=== PATIENT | male | born 1950 | race Caucasian/White ===

== ENCOUNTER 2016-07-26 09:27 | Emergency (ER) ==
[2016-07-26 09:32] VITALS: BP 157/77; BMI 25.7
--- NOTE | 2016-07-26 09:42 | ED.PDOC ---
General ED Provider: Dr. AIDE AZEVEDO JR Chief Complaint: Fever Stated Complaint: patient states he started with a cough 1 week ago. states increasingly getting worse. states cough prod clear to light yellow phlegm. states throat is sore. c/o bodyaches. some nasal congestion but clear.[ End ]2- 3 days 103.1 81 16 94% 157/77 Time Seen by Physician: 09:40 Mode of Arrival: Walk-In Information Source: Patient Exam Limitations: No limitations Primary Care Provider: ANNELISE RODRÍGUEZ Nursing and Triage Documentation Reviewed and Agree: No Review of Systems - Review Of Systems Constitutional: Reports: Fever, Malaise Eyes: Reports: No symptoms Ears, Nose, Mouth, Throat: Reports: No symptoms Respiratory: Reports: Cough Cardiac: Reports: No symptoms GI: Reports: No symptoms : Reports: No symptoms Musculoskeletal: Reports: Muscle pain Skin: Reports: No symptoms Neurological: Reports: No symptoms Endocrine: Reports: No symptoms Hematologic/Lymphatic: Reports: No symptoms All Other Systems: Other Past Medical History - Past Medical History Previously Healthy: No Endocrine: Reports: None Cardiovascular: Reports: CAD, Hypertension, Other (ENLARGED HEART WITH LOW EJECTION FRACTION) Respiratory: Reports: None Hematological: Reports: None Gastrointestinal: Reports: None Genitourinary: Reports: None Neuro/Psych: Reports: None Musculoskeletal: Reports: None Cancer: Reports: None Other Pertinent Past Medical History: CUT OFF TIP OF LEFT 2ND FINGER - Surgical History General Surgical History: Reports: None - Family History Family History: Reports: None - Social History Smoking Status: Never smoker Hx Substance Use: No Alcohol Screening: None Physical Exam - Physical Exam Appearance: Ill-appearing, Thin Ill-appearing: Moderate Pain Distress: Moderate Eyes: JESSICA, EOMI, Conjunctiva clear ENT: Ears normal, Nose normal, Oropharynx normal Neck: Supple Respiratory: Airway patent, Breath sounds diminished, Crackles, Rhonchi Cardiovascular: RRR, Pulses normal, No rub, No murmur GI/: Soft, Nontender, No masses, Bowel sounds normal, No Organomegaly Musculoskeletal: Normal strength, ROM intact, No edema, No calf tenderness Skin: Warm, Dry, Normal color Neurological: Sensation intact, Motor intact, Reflexes intact, Cranial nerves intact, Alert, Oriented Psychiatric: Affect appropriate, Mood appropriate Interpretation - Radiology Interpretation Radiology Interpretation By: Radiologist Radiology Results: No acute changes Exam Interpreted: CXR - EKG Interpretation Time of EKG #1: 09:45 Rate: Normal Rhythm: Sinus Ambler: Left ST Segment: Other (lbbb) EKG Comparison: No significant changes ([id number]) Critical Care Note - Critical Care Note Total Time (mins): 0 Course - Course Hematology/Chemistry: 07/26/16 10:00 07/26/16 10:00 Orders, Labs, Meds: Lab Review 07/26/16 07/26/16 10:00 10:12 WBC 6.79 RBC 4.23 L Hgb 13.7 L Hct 39.2 L MCV 92.7 MCH 32.4 H MCHC 34.9 RDW Coeff of Андрей 11.7 Plt Count 248 Immature Gran % (Auto) 0.4 Neut % (Auto) 79.6 Lymph % (Auto) 9.9 L [place] % (Auto) 9.4 Eos % (Auto) 0.4 Baso % (Auto) 0.3 Immature Gran # (Auto) 0.0 Neut # 5.4 Lymph # 0.7 [place] # 0.6 Eos # 0.0 Baso # 0.0 D-Dimer 1.11 Sodium 136 Potassium 3.8 Chloride 102 Carbon Dioxide 25 Anion Gap 12.8 BUN 18 Creatinine 1.21 H Estimated GFR (MDRD) 60.00 BUN/Creatinine Ratio 14.87 Glucose 101 Calcium 9.1 Total Bilirubin 0.40 AST 26 ALT 19 Alkaline Phosphatase 68 Total Creatine Kinase 113 Troponin I < 0.0100 B-Natriuretic Peptide 111 H Total Protein 7.0 Albumin 3.7 Globulin 3.3 Albumin/Globulin Ratio 1.12 Influenza A (Rapid) Negative Influenza B (Rapid) Negative Orders Category Date Time Status EKG-(ED ONLY) Stat CARDIO 07/26/16 09:37 Completed ED IV/MEDIPORT/POWERPORT .ONCE EMERGENCY 07/26/16 09:37 Active B-TYPE NATRIURETIC PEPTIDE Stat LAB 07/26/16 10:00 Completed BLOOD CULTURE Stat LAB 07/26/16 10:00 Received CBC W/ AUTO DIFF Stat LAB 07/26/16 10:00 Completed COMPREHENSIVE METABOLIC PANEL Stat LAB 07/26/16 10:00 Completed CREATINE KINASE Stat LAB 07/26/16 10:00 Completed D-DIMER Stat LAB 07/26/16 10:00 Completed MOLECULAR GROUP A STREP Stat LAB 07/26/16 10:12 Results RAPID FLU A/B Stat LAB 07/26/16 10:12 Completed SPUTUM CULTURE Stat LAB 07/26/16 11:02 Received STREP SCREEN Stat LAB 07/26/16 10:12 Results TROPONIN I Stat LAB 07/26/16 10:00 Completed 0.9 % Sodium Chloride [Saline Flush] MEDS 07/26/16 09:37 Active 1 syr IVF PRN PRN Acetaminophen [Tylenol] MEDS 07/26/16 09:52 Discontinued 650 mg PO ONCE STA Guaifenesin/Codeine Phosphate [Robitussin AC Syrup] MEDS 07/26/16 11:33 Stat 10 ml PO ONCE STA CHEST, 2 VIEWS PA & LAT Stat RADS 07/26/16 09:37 Completed Medications Generic Name Dose Route Start Last Admin Trade Name Freq PRN Reason Stop Dose Admin Sodium Chloride 1 syr 07/26/16 09:37 Saline Flush IVF PRN PRN To flush IV Discontinued Medications Generic Name Dose Route Start Last Admin Trade Name Freq PRN Reason Stop Dose Admin Acetaminophen 650 mg 07/26/16 09:52 07/26/16 10:07 Tylenol PO 07/26/16 09:53 650 mg ONCE STA Administration Guaifenesin/Codeine Phosphate 10 ml 07/26/16 11:33 Robitussin Ac Syrup PO 07/26/16 11:34 ONCE STA Vital Signs: Temp Pulse Resp BP Pulse Ox 07/26/16 11:26 100.3 F H 07/26/16 09:29 103.1 F H 81 16 157/77 H 94 L Departure - Departure Time of Disposition: 11:22 Disposition: HOME SELF-CARE Discharge Problem: URTI (acute upper respiratory infection), Fever Instructions: Fever in Adults (ED), Upper Respiratory Infection (ED) Condition: Fair Pt referred to PMD for follow-up: Yes Additional Instructions: increase fluids Tylenol and Motrin for fever antibiotic until gone cough medication as needed robitussin with codeine Prescriptions: Amoxicillin/Potassium Clav [Augmentin 875-125 mg Tab] 1 tab PO BIDWM #14 tablet Guaifenesin/Codeine Phosphate [Robitussin AC Syrup] 10 ml PO Q6H PRN #240 ml PRN Reason: Cough Allergies/Adverse Reactions: Allergies Beef Containing Products Adverse Reaction (Verified 07/26/16 09:32) Anaphylaxis pork derived (porcine) Adverse Reaction (Verified 07/26/16 09:32) Anaphylaxis red meat Adverse Reaction (Uncoded 07/26/16 09:32) Anaphylaxis sturgeon Adverse Reaction (Uncoded 07/26/16 09:32) Anaphylaxis Home Medications: Ambulatory Orders Aspirin 81 mg PO DAILY 03/28/16 Carvedilol [Coreg] 12.5 mg PO BID 03/28/16 Lisinopril [Zestril] 10 mg PO BID 03/28/16 Amoxicillin/Potassium Clav [Augmentin 875-125 mg Tab] 1 tab PO BIDWM #14 tablet 07/26/16 Diphenhydramine HCl [Benadryl] 25 mg PO Q6H PRN 07/26/16 Guaifenesin/Codeine Phosphate [Robitussin AC Syrup] 10 ml PO Q6H PRN #240 ml 02/01
[2016-07-26] MEDS ORDERED: TYLENOL PO STA (09:52)
[2016-07-26 10:15] LABS: BASOPHILS % (AUTO) 0.3 % (0.0-3.0); EOSINOPHILS % (AUTO) 0.4 % (0.0-7.0); HEMATOCRIT 39.2 % (42.0-52.0); HEMOGLOBIN 13.7 g/dl (14.0-18.0); IMMATURE GRANULOCYTE % (AUTO) 0.4 % (0.0-5.0); LYMPHOCYTES # (AUTO) 0.7 K/uL (0.60-3.4); LYMPHOCYTES % (AUTO) 9.9 (10.0-50.0); MEAN CORPUSCULAR HEMOGLOBIN 32.4 pg (27.0-31.0); MEAN CORPUSCULAR HGB CONC 34.9 (31.8-35.4); MEAN CORPUSCULAR VOLUME 92.7 fl (80.0-94.0); MONOCYTES # (AUTO) 0.6 K/uL (0.4-2.0); MONOCYTES % (AUTO) 9.4 (0-10); NEUTROPHILS # (AUTO) 5.4 K/ul (2.0-6.9); NEUTROPHILS % (AUTO) 79.6; PLATELET COUNT 248 10^3/uL (140-440); RED BLOOD COUNT 4.23 10^6/ul (4.70-6.10); WHITE BLOOD COUNT 6.79 K/ul (4.2-10.2)
[2016-07-26 10:30] LABS: FLU INTERNAL QC INTERNAL QC VALID; RAPID FLU A NEGATIVE (NEGATIVE); RAPID FLU B NEGATIVE (NEGATIVE)
[2016-07-26 10:36] LABS: ALANINE AMINOTRANSFERASE 19 U/L (12-78); ALBUMIN 3.7 g/dL (3.4-5.0); ALBUMIN/GLOBULIN RATIO 1.12; ALKALINE PHOSPHATASE 68 U/L (56-119); ANION GAP 12.8; ASPARTATE AMINO TRANSFERASE 26 U/L (15-37); BLOOD UREA NITROGEN 18 mg/dL (7-18); BUN/CREATININE RATIO 14.87; CALCIUM 9.1 mg/dL (8.2-10.2); CARBON DIOXIDE 25 mmol/L (23-31); CHLORIDE 102 mmol/L (98-107); CREATINE KINASE 113 U/L; CREATININE 1.21 mg/dL (0.60-1.10); GLUCOSE 101 mg/dL (82-115); POTASSIUM 3.8 mmol/L (3.5-5.1); SODIUM 136 mmol/L (136-145)
--- NOTE | 2016-07-26 10:39 | DI ---
EXAM: PA and lateral views of the chest HISTORY: Cough. COMPARISON: Chest x-ray 03/28/2016 FINDINGS: The cardiomediastinal silhouette is normal. There is no pneumothorax or pleural effusion . There is no consolidation, nodule or mass. The osseous structures are unremarkable. IMPRESSION: No acute cardiopulmonary process
[2016-07-26 11:27] VITALS: TEMP 100.3
[2016-07-26] MEDS ORDERED: ROBITUSSIN AC SYRUP PO STA (11:33)
== END 2016-07-26 11:41 | disposition home or self-care (01) ==
LOC: ED 09:27
DX: J06.9 Acute upper respiratory infection, unspecified (principal); R50.9 Fever, unspecified; I10 Essential (primary) hypertension; I25.10 Atherosclerotic heart disease of native coronary artery without angina pectoris; Z79.899 Other long term (current) drug therapy
CPT/HCPCS: 36415; 80053; 82550; 83880; 84484; 85025; 85379; 87040; 87070; 87651; 87804; 87880; 93005; 93010; 99283